=== PATIENT | female | born 1945 | race Caucasian/White ===

== ENCOUNTER 2017-04-09 11:03 | Emergency (ER) | payer MEDICARE, BC ==
[2017-04-09] MEDS ORDERED: MECLIZINE HCL 25 MG TABLET PO ONE (11:22)
[2017-04-09] MEDS ORDERED: NORMAL SALINE 1,000 ML IV ONE (11:32)
[2017-04-09] MEDS ORDERED: MECLIZINE HCL 25 MG TABLET ONE (11:34)
[2017-04-09 11:38] LABS: Urine Appearance Clear; Urine Bilirubin Negative (NEGATIVE); Urine Color Yellow; Urine Ketone Negative (NEGATIVE)
--- NOTE | 2017-04-09 11:38 | ERNOTE ---
Dizziness ER Record Date of Service: 04/09/17 Presenting Symptoms: dizziness Time Seen by Provider: 04/09/17 11:13 Source: patient Exam Limitations: no limitations Immunizations: IMMUNIZATION HX Immunizations Up to Date Yes History of Influenza Vaccine Yes Hx Pneumococcal Vaccination No Allergies/Adverse Reactions: Allergies Allergy/AdvReac Type Severity Reaction Status Date / Time Sulfa (Sulfonamide Allergy Intermediate Hives Verified 04/09/17 11:12 Antibiotics) Home Medications: HOME MEDICATIONS Meloxicam 7.5 mg PO DAILY 04/09/17 [Last Taken Unknown] Triamterene/Hydrochlorothiazid [Maxzide 37.5MG/25 MG] 1 tab PO DAILY 04/09/17 [ Last Taken Unknown] Valsartan [Diovan] 160 mg PO DAILY 04/09/17 [Last Taken Unknown] - History of Present Illness Narrative: Pt. comes in with c/o R flank pain and dizziness for five days. Pt. denies any SOB, CP, NVD, ans states that the dizziness is resolved with meclizine and is worsened with position changes. Pt. denies any Dysuria or changes in pain. Pt. bismark cralan she saw the clinic provider three days ago and was started on Percocet and meclizine. Pt. denies any headache or vision changes. Review of Systems - Review of Systems Constitutional: Present: no symptoms reported. Absent: fever, chills, weakness , fatigue, malaise EYE: Present: no symptoms reported. Absent: blurred vision, double vision, vision changes ENT: Present: no symptoms reported Respiratory: Present: no symptoms reported. Absent: shortness of breath, cough , wheezing Cardiology: Present: no symptoms reported. Absent: chest pain, palpitations, edema Gastrointestinal/Abdominal: Present: no symptoms reported Genitourinary: Present: no symptoms reported Musculoskeletal: Present: back pain - R flank Skin: Present: no symptoms reported. Absent: rash, change in hair/nails Neurological: Present: dizziness/light-headedness. Absent: headache, numbness, tingling All Other Systems: All systems neg except as marked - Patient's Past Medical History Patient History - Medical: No pertinent hx Patient History - Cardiac/Respiratory: Hypertension Patient History - Cancer: No Hx of Cancer Patient History - Surgical Procedures: Cholecystectomy Patient History - Other: None - Family History Mother Family History - Medical: Family History - Cardiac/Respiratory: CHF Family History - Cancer: Breast Father Family History - Medical: Dementia, Glaucoma Family History - Cardiac/Respiratory: No pertinent hx Family History - Cancer: No pertinent family hx Paternal Grandmother Family History - Medical: Family History - Cardiac/Respiratory: No pertinent hx Family History - Cancer: Breast - Social History Living Situations: home Abuse History: No History of abuse Psych History: No pertinent hx Smoking Status: Never smoker Have you smoked in the past 12 months: No Do you dip or chew tobacco: No Alcohol Use: none Drug Use: none - Immunizations Immunizations Up to Date: Yes Hx Pneumococcal Vaccination: No History of Influenza Vaccine: Yes Physical Exam - Physical Exam General Appearance: Present: wd/wn, alert, no apparent distress Head Exam: Present: normal inspection, no evidence of injury Eye Exam: PERRL: bilateral, EOMI: bilateral, Other: left - nystagmus with edgar- hallpike Ears, Nose, Throat: Present: normal ENT inspection Neck: Present: normal inspection, nontender. Absent: lymphadenopathy (R), lymphadenopathy (L) Respiratory: Present: no respiratory distress, normal breath sounds, no accessory muscle use, chest nontender, lungs clear Cardiovascular/Chest: Present: regular rate, rhythm, no murmur, normal peripheral pulses Gastrointestinal/Abdominal: Present: normal bowel sounds, nontender, nondistended, soft Back Exam: Present: normal inspection, normal range of motion, no CVA tenderness , no vertebral tenderness Extremity Exam: Present: normal inspection, non-tender, normal range of motion, no edema Neurological Exam: Present: alert, oriented, normal mood/affect, no motor/ sensory deficits, 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 Absent: pallor, skin rash ED Progress - Date and Time Seen: Date and Time: 04/09/17 11:51 L edgar hallpike positive with Nystagmus 04/09/17 12:42 Pt. symptoms are completely resolved at this time. Discussed options with pt. and she does not want further testing to completely rule out posterior CVA although this is unlikely as symptoms are now resolved, and pt. 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 is going to follow up with the mission physician and will have further testing on outpatient basis if he recommends it. I feel that this is appropriate treatment along with increasing her fluid intake as pain may be related to dehydration and HTN medication with kidney reaction. - Results and Orders Patient's Lab Results:: I have reviewed the patient's lab results. - Vital Signs Patient's Vital Signs:: I have reviewed the patient's vital signs. Vital Signs: Vital Signs 04/09/17 11:05 Temperature 36.8 C Pulse Rate 89 Respiratory 16 Rate Blood Pressure 124/78 O2 Sat by Pulse 90 Oximetry - EKG EKG: nonspecific ST T wave changes, other - no acute EKG read: Reviewed by me EKG Comments: interp by dr sergio barry Departure Clinical Impression: BPV (benign positional vertigo) Qualifiers: Laterality: left Qualified Code(s): H81.12 - Benign paroxysmal vertigo, left ear - Departure Disposition: Home self-care Condition: Good Instructions: Dizziness, [id number], Vertigo, [id number] Additional Instructions: Please continue Meclizine and increase fluid intake. Please follow up with clinic provider in 2-3 days if not resolved.
[2017-04-09 11:39] LABS: Urine Bacteria None Seen; Urine Blood Negative /ul (NEGATIVE); Urine Nitrite Negative (NEGATIVE); Urine Protein Negative (NEGATIVE); Urine RBC None Seen /hpf (0-5); Urine Urobilinogen Normal (NORMAL); Urine WBC 0-5 /hpf (0-5); Urine pH 7.5 pH (5.0-7.0)
[2017-04-09 11:54] LABS: Hematocrit 45.3 % (37.0-47.0); Hemoglobin 15.7 gm/dL (12.5-16.0); Mean Cell Volume 88.5 fl (78-100); Mean Corpuscular Hemoglobin 30.7 pg (27-31); Mean Corpuscular Hgb Conc 34.7 g/dl (32-36); Mean Platelet Volume 10.1 fl (6.0-9.5); Neutrophil # 3.7 K/mm3 (1.3-6.0); Neutrophil % 58.7 % (42-75.0); Platelet Count 250 K/mm3 (150-450); Red Blood Count 5.12 M/mm3 (4.2-5.4); Red Cell Distribution Width 12.6 % (11.5-14.0); White Blood Count 6.3 K/mm3 (4.0-10.5)
[2017-04-09 12:08] LABS: Albumin * 3.9 gm/dl (3.4-5.0); Bilirubin, Total 0.5 mg/dL (0.0-1.1); Ca. Corrected For Albumin 10.4 mg/dL (8.4-10.2); Calcium * 10.6 mg/dL (7.9-10.9); Carbon Dioxide 26.5 mmol/L (24-32.6); Potassium 3.5 mmol/L (3.4-4.6); Total Protein 7.9 gm/dL (6.2-8.2)
[2017-04-09 12:13] LABS: Troponin I Less than 0.017 ng/ml (0.00-0.10)
[2017-04-09 12:19] LABS: TSH * 1.923 uIU/mL (0.358-3.74)
[2017-04-09 12:36] VITALS: BP 121/61
== END 2017-04-09 12:58 | disposition home or self-care (01) ==
LOC: ER 11:03
DX: H81.12 Benign paroxysmal vertigo, left ear (principal); I10 Essential (primary) hypertension